=== PATIENT | female | born 1965 | race Hispanic/Latino ===

== ENCOUNTER → 2020-02-24 | Day surgery (SDC) | payer OTHER ==
[~2020-02-24] MED LIST: ACETAMINOPHEN/CODEINE 300MG - 30MG TAB ONE; BUPIVACAINE HCL 0.5% INJ 30 ML VIAL INJ ONE; CEFAZOLIN SOD 1 GM/NS 50ML 100 ML IV ONE; DEXAMETHASONE SOD PHOS INJ 4 MG/ML VIAL ONE; FENTANYL CITRATE/PF 100MCG/2 ML INJ ONE; LEVOTHYROXINE112 MCG PO; LIDOCAINE HCL 2% LOCAL INJ 5 ML SDV VIAL INJ ONE; LISINOPRIL10 MG PO; METOPROLOL TART25 MG PO; MIDAZOLAM HCL 2 MG/2 ML VIAL ONE; ONDANSETRON HCL INJ 2MG/ML 2ML 2 MG/ML VIAL ONE; PROPOFOL IV EMULSION 10 MG/ML 20 ML VIAL ONE; SEVOFLURANE INHAL SOLN 250 ML PEN BTL ONE
--- NOTE | 2020-02-24 07:20 | NUR ---
SPIRITUAL CARE - Pre-Surgery Assessment: Pt in bed. Pt's at bedside. Pt reported supportive attention from family and friends. Intervention: Tray Worker provided pastoral presence, hospitality, and sympathetic listening. Acquainted pt with availability of refrigeration plant operator while hospitalized. Outcome: Pt expressed appreciation for visit. No need for follow up indicated at this time. AVELINO Levine Spiritual Care Department O: [phone]
[2020-02-24 10:15] VITALS: BP 131/81
--- NOTE | 2020-03-03 21:21 | Operative Report ---
DATE OF PROCEDURE: 02/24/2020 SURGEON: Ranjeet Gonsales MD PREOPERATIVE DIAGNOSES: 1. Right knee medial meniscus tear. 2. Right knee degenerative joint disease of the knee. POSTOPERATIVE DIAGNOSES: 1. Right knee medial meniscus tear. 2. Right knee degenerative joint disease of the knee. OPERATIONS/PROCEDURES PERFORMED: The patient underwent right knee examination under anesthesia, right knee arthroscopy, right knee partial medial meniscectomy, right knee chondroplasty of the patella, trochlea, the medial femoral condyle, the medial tibial plateau, the lateral femoral condyle, and lateral tibial plateau. SWIMMING TEACHER: There was no sales assistant institutional sales. ANESTHESIA: General endotracheal intubation anesthesia. IV FLUIDS: Per Anesthesia record. BRIEF DESCRIPTION OF THE PATIENT'S OPERATIVE PROCEDURE: Ms. Sosa was taken to the operating room, placed in supine position on the operating table. Following the induction of general anesthesia as well as endotracheal intubation, the patient's right lower extremity was examined under anesthesia. She had well-healed scars consistent with previous anterior cruciate ligament reconstruction. There was a mild effusion with knee joint. Range of motion of the knee was well preserved. The patient's lower extremity was prepped and draped in standard surgical fashion. A two-port technique used to provide this patient arthroscopic evaluation of the knee joint. The scope was placed within the knee joint atraumatically. Examination of the suprapatellar pouch, medial and lateral gutters found no evidence of loose bodies. There was, however, evidence of chondromalacia of the patella and trochlear surfaces. The scope was advanced to medial compartment. Examination of the medial compartment demonstrated chondromalacia of articulating surfaces as well as a tear of the root of the medial meniscus. A combination of biting forceps and motorized shaver was used to resect the torn portion of meniscus. Chondroplasties of medial femoral condyle and medial tibial plateau were performed at this time. Scope was advanced to the intercondylar notch and the anterior cruciate ligament was found to be intact. Scope was advanced to lateral compartment and chondromalacia articulating surfaces were encountered. A chondroplasty of the lateral femoral condyle and lateral tibial plateau performed at this time. Scope was advanced to patella pouch and chondroplasties of the patellar and trochlear performed. The knee was then deflated with sterile normal saline. Each of the portal sites were closed using 4-0 nylon suture. The portal sites as well as knee itself were injected with 0.5% Marcaine with epinephrine. Sterile dressings were applied. The patient was then awakened and taken to postanesthesia care in stable condition. MD ZAFAR Hollis/ELMIRA /[id number]
== END | disposition home or self-care (01) ==
LOC: OR 06:37
PROVIDERS: ATTEND Specialist
DX: M17.11 Unilateral primary osteoarthritis, right knee (principal); S83.221A Peripheral tear of medial meniscus, current injury, right knee, initial encounter; M75.121 Complete rotator cuff tear or rupture of right shoulder, not specified as traumatic; M70.61 Trochanteric bursitis, right hip; I10 Essential (primary) hypertension; Z82.61 Family history of arthritis; Z80.9 Family history of malignant neoplasm, unspecified; Z83.3 Family history of diabetes mellitus; Z82.49 Family history of ischemic heart disease and other diseases of the circulatory system; E03.9 Hypothyroidism, unspecified; Z11.59 Encounter for screening for other viral diseases; Z01.810 Encounter for preprocedural cardiovascular examination
CPT/HCPCS: 29881; 87635; 93005; J0690; J1100; J2001; J2250; J2405; J2704; J3010